=== PATIENT | female | born 1995 | race American Indian/Alaskan Native ===

== ENCOUNTER 2018-01-01 11:49 | Emergency (ER) | payer MEDICAID ==
[2018-01-01 12:15] VITALS: BP 140/80
--- NOTE | 2018-01-01 14:08 | Emergency Department Report ---
HPI - General Chief Complaint: Urogenital-Female Time Seen by Provider: 01/01/18 14:03 - HPI HPI: 22-year-old -[place] female comes in for right breast lump that's been going on for 2 years. Patient reports that the lump comes and goes. She reports that he does reappear and it causes pain when she lays her baby that she is nursing up to her chest. Patient denies any discharge from the lump, denies any redness, denies any erythematous. Patient reports that she has a primary care provider and has taken no medication prior to arrival. Her next appointment to her PCP is 01/17/2018. ED Past Medical Hx - Past Medical History Previous Medical History?: Yes Additional medical history: Miscarriage x 1, Vaginal delivery x 05-09-2017 - Surgical History Past Surgical History?: Yes - Social History Smoking Status: Never Smoker Substance Use Type: None ED Review of Systems ROS: Stated complaint: LUMP ON BREAST Other details as noted in HPI Constitutional: denies: chills, fever Eyes: denies: eye pain, eye discharge, vision change ENT: denies: ear pain, throat pain Respiratory: denies: cough, shortness of breath, wheezing Cardiovascular: denies: chest pain, palpitations Endocrine: no symptoms reported Gastrointestinal: denies: abdominal pain, nausea, diarrhea Genitourinary: denies: urgency, dysuria, discharge Musculoskeletal: denies: back pain, joint swelling, arthralgia Skin: denies: rash, lesions Neurological: denies: headache, weakness, paresthesias Psychiatric: denies: anxiety, depression Hematological/Lymphatic: denies: easy bleeding, easy bruising Other: lump to the right breast Physical Exam - Physical Exam Vital Signs: Vital Signs 01/01/18 12:11 Temperature 98.5 F Pulse Rate 95 H Respiratory 20 Rate Blood Pressure 140/80 O2 Sat by Pulse 99 Oximetry Physical Exam: GENERAL: Alert and oriented x3, no apparent distress, Normal Gait, atraumatic. HEAD: Head is normocephalic and a-traumatic. EYES: Extra ocular muscles are intact. Pupils are equal, round, and reactive to light and accommodation. EARS: symetrical, atraumatic, non tender, ear canal clear and moderate cerumen, tympanic membrance non inflamed. gross auditory nml bilaterally. NOSE: Nose symetrical, Nontender,Nares appeared normal. MOUTH:Mouth is well hydrated and without lesions. Tonsils nonerythematous or swollen, Uvula midline, Tongue not elevated. Mucous membranes are moist. Posterior pharynx clear, no exudate or lesions. Patent airways. NECK: Supple. Non edematous, No carotid bruits. No lymphadenopathy or thyromegaly. LUNGS: Symetrical with respiration, No wheezing, no rales or crackles, CTAB. HEART: S1, S2 present, regular rate and rhythm without murmur, no rubs, no gallops. BREAST: Symetrical, Supple bilaterally, pea-sized mobile lesion located in the right inferior breast near the mediastinal. Non-erythematous non-edematous no discharge no pain when light palpation able to move the lesion. GENITOURINARY: External genitalia without erythema, exudate or discharge. Vaginal vault is without discharge. Cervix is of normal color without lesion. EXTREMITIES/MUSCULOSKELETAL: No cyanosis, clubbing, rash, lesions or edema. Full ROM bilaterally. UE/LE Pulses 2+ bilaterally. LE and UE 5+ strength bilaterally NEUROLOGIC: No focal Deficit, Cranial nerves II through XII are grossly intact. No loss of sensation, No facial droop, . PSYCHIATRIC: Mood is congruent with affect, denies suicidal or homicidal ideations. SKIN: Warm and dry, No lesions, No ulceration or induration present ED Course Vital Signs 01/01/18 12:11 Temperature 98.5 F Pulse Rate 95 H Respiratory 20 Rate Blood Pressure 140/80 O2 Sat by Pulse 99 Oximetry ED Medical Decision Making - Medical Decision Making Patient has been evaluated by this provider fast track. I discussed with patient that this is not an acute issue at this is been going on for 2 years. I discussed the patient at this best evaluated by her primary care provider. Discussed with patient she can take Tylenol for any discomfort. Please keep her appointment for 01/17/2018. She verbalized understanding. Critical care attestation.: If time is entered above; I have spent that time in minutes in the direct care of this critically ill patient, excluding procedure time. ED Disposition Clinical Impression: Breast lump in female Disposition: DC-01 TO HOME OR SELFCARE Is pt being admited?: No Does the pt Need Aspirin: No Condition: Stable Instructions: Breast Mass (ED) Additional Instructions: Please follow up with her primary care provider which she reports scheduled for 01/17/2018. You can take Tylenol for pain or discomfort. Referrals: PRIMARY CARE, [Primary Care Provider] - 3-5 Days
== END 2018-01-01 14:25 | disposition home or self-care (01) ==
LOC: ED 11:49
DX: N63.10 Unspecified lump in the right breast, unspecified quadrant (principal)
CPT/HCPCS: 99282

== ENCOUNTER 2019-02-05 14:52 | Emergency (ER) | payer OTHER ==
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
[2019-02-05 17:04] LABS: HCG Qualitative,Urine Negative (Negative)
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
--- NOTE | 2019-02-05 18:37 | XRay Report ---
PROCEDURE: XR SPINE CERVICAL 2-3V TECHNIQUE: 4 views cervical spine HISTORY: neck pain COMPARISONS: None FINDINGS: 7 cervical vertebrae identified. Straightening of normal lordosis. Alignment otherwise unremarkable. Vertebral body height normal. Facets normal alignment. Prevertebral soft tissue unremarkable. IMPRESSION: Straightening of the normal cervical lordosis which can be secondary to pain, spasm or positioning Otherwise no acute abnormality noted.. This document is electronically signed by Wilder Mitchell MD., Feb 05 2019 06:35:31 PM ET
[2019-02-05] MEDS ORDERED: IBUPROFEN PO ONE (18:48)
[2019-02-05] MEDS ORDERED: FLEXERIL PO ONE (18:48)
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
[2019-02-05 20:39] VITALS: BP 134/77
== END 2019-02-05 20:39 | disposition home or self-care (01) ==
LOC: ED 14:52
DX: S16.1XXA Strain of muscle, fascia and tendon at neck level, initial encounter (principal); S39.012A Strain of muscle, fascia and tendon of lower back, initial encounter; I10 Essential (primary) hypertension; V89.2XXA Person injured in unspecified motor-vehicle accident, traffic, initial encounter; Y93.89 Activity, other specified; Y92.488 Other paved roadways as the place of occurrence of the external cause; Y99.8 Other external cause status
CPT/HCPCS: 72040; 72100; 81025; 99284